=== PATIENT | male | born 1960 | race Caucasian/White ===

== ENCOUNTER 2016-08-05 08:20 | Day surgery (SDC) | payer BC, OTHER ==
--- NOTE | ~2016-08-05 | OP ---
Record Of Operation [facility] [address] [place]. [address] NAME: PAMELA ZAVALA : 58 STATUS : [place] [facility] PAT#: [id number] AGE: 56 ADM/REG DATE : 08/05/16 MR#: [id number] REPORT SERV DATE: 08/05/16 DICTATED BY: BOBY CARRILLO DATE: 08/05/16 REPORT STATUS : Draft TRANSCRIBED BY: MODL DATE: 08/05/16 DATE OF PROCEDURE: 08/05/2016 PREOPERATIVE DIAGNOSIS: Poorly healing large venous ulcer, left lower extremity with threatened limb loss. 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 SURGERY PERFORMED: 1. Aortogram. 2. Left lower extremity runoff. 3. Stenting of the external iliac artery using a 6 x 60 self-expanding stent. SURGEON: Boby Carrillo M.D. DESCRIPTION OF PROCEDURE: The patient was placed under IV sedation. The groins were prepped and draped in a sterile fashion. Left femoral artery cannulated with ultrasound direction. A needle wire and sheath were placed. UF catheter placed into the abdominal aorta and an aortogram done showing the aorta was patent. The right renal artery readily filled and looked completely normal. The left was poorly seen. The aorta was smooth with large collaterals coming off. 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 The UF was pulled down into the distal aorta runoff films on the left showing that the common iliac appeared to be normal. The aorta and iliac were both small. The external showed disease just at the origin of the external and then, there was some recurrent stenosis inside of a stent, and then below the stent there was scattered plaque extending probably 4 cm distal with the areas of stenosis possibly 60% to 70%. The common femoral was patent. The SFA was also patent. There was a stent in the midportion of the SFA showing minimal of any stenosis. The popliteal was open and the runoff showing primarily the posterior tibial, but the anterior tibial also filling all the way down to the mid distal foot. With this finding, mag views were done of the iliac and an oblique view showing the areas of stenosis. The preoperative ultrasound showing velocities in the 400s of the external iliac and again, the patient has a large ulcer that could result in limb loss without improving blood flow. He was given 2500 units of heparin. A 6 x 60 stent was then used to bridge the other stent and then carried this down distally, down to the area of additional plaquing. This was then ballooned with a 6 balloon aggressively. The entire area as well as just above the proximal stent. After ballooning was done, the final film showing no residual stenosis. There was really nothing else to be done. So far, was improving of blood flow to this left lower extremity. With this finding, the sheath was simply pulled from the groin and pressure was held, and then dry dressing was applied. Estimated blood loss was 30 mL. He went to the recovery room in good condition. /TRACE Record Of [place] [id number] [place]. [address] NAME: PAMELA ZAVALA : 58 STATUS : [place] [facility] PAT#: [id number] AGE: 56 ADM/REG DATE : 08/05/16 MR#: [id number] REPORT SERV DATE: 08/05/16 DICTATED BY: BOBY CARRILLO DATE: 08/05/16 REPORT STATUS : Draft TRANSCRIBED BY: TRACE DATE: 08/05/16 Boby Carrillo M.D. / [id number] CC: Yael Pollard Erwin M
[~2016-08-05 08:20] MED LIST: ASAB PO; AUG500 PO; AUG875 PO; DIOVAN HCT160 MG/25 PO; FISH-EPA1000 MG PO; HYDROCODONE 7.5/500 PO; LORT7 PO; LORTAB 5 PO; MULTIVITAMI1 PO; NORCO1 TA1 PO; NORCO1 TA2 PO; PEP20 PO; PRAV10 PO; PRAVAC PO
[2016-11-21] MEDS ORDERED: NORCO1 TA2 PO (15:22)
[2016-11-21] MEDS ORDERED: PRAVAC PO (15:22)
[2016-11-21] MEDS ORDERED: L20 PO (15:23)
[2016-11-21] MEDS ORDERED: DIOVAN HCT160 MG/25 PO (15:23)
[2016-11-21] MEDS ORDERED: PROAIR HFA INH (15:23)
== END 2016-08-05 17:40 | disposition home or self-care (01) ==
LOC: SDC 08:20 → SSU1 12:32
PROVIDERS: Surgery Vascular Surgery
PROC: 047J3DZ Dilation of Left External Iliac Artery with Intraluminal Device, Percutaneous Approach (ICD-10-PCS; principal; 2016-08-05 10:00)
DX: I70.202 Unspecified atherosclerosis of native arteries of extremities, left leg (principal); I73.9 Peripheral vascular disease, unspecified; I10 Essential (primary) hypertension; G47.33 Obstructive sleep apnea (adult) (pediatric); E78.00 Pure hypercholesterolemia, unspecified; E11.9 Type 2 diabetes mellitus without complications; F32.9 Major depressive disorder, single episode, unspecified; Z98.890 Other specified postprocedural states; D64.9 Anemia, unspecified; K44.9 Diaphragmatic hernia without obstruction or gangrene; K58.9 Irritable bowel syndrome, unspecified; J43.9 Emphysema, unspecified; F17.210 Nicotine dependence, cigarettes, uncomplicated; Z88.8 Allergy status to other drugs, medicaments and biological substances; Z79.899 Other long term (current) drug therapy; Z79.891 Long term (current) use of opiate analgesic
CPT/HCPCS: 37221; 75625; 75710; 82962; 85014; 85018; 93005; A9270-GY; C1725; C1769; C1876; C1894; J0690; J2250; J2270; J2370; J3010; Q9966